=== PATIENT | female | born 2000 | race Caucasian/White ===

== ENCOUNTER 2018-08-22 08:52 | Outpatient (CLI) | payer OTHER ==
--- NOTE | 2018-08-22 09:26 | ULT ---
LIMITED RIGHT BREAST ULTRASOUND: Date: 08-22-18 Provided Clinical History: Right breast palpable abnormality. FINDINGS: Limited sonographic interrogation of the right breast was performed in the region of palpable concern . The sonographic appearance of the breast tissue in this region is normal. IMPRESSION: No sonographic abnormality is evident in the region of palpable concern. Patient was referred back to her clinician. POS: OFF
== END 2018-08-22 08:53 | disposition home or self-care (01) ==
LOC: BICULT 08:52
PROVIDERS: ATTEND Physician Assistant
DX: Z02.9 Encounter for administrative examinations, unspecified (principal)